=== PATIENT | female | born 1980 | race Caucasian/White ===

== ENCOUNTER 2020-02-06 13:17 | Emergency (ER) | payer MEDICAID, SELFPAY ==
[2020-02-06 13:18] VITALS: BP 177/114; PULSE 95; RESP 20; TEMP 36.1; O2SAT 99; BMI 35.2
--- NOTE | 2020-02-06 13:23 | NURSING ---
NO OLD EKGS
--- NOTE | 2020-02-06 13:30 | EKG12_ITS ---
Test Reason : CP Blood Pressure : / mmHG Vent. Rate : 079 BPM Atrial Rate : 079 BPM P-R Int : 168 ms QRS Dur : 090 ms QT Int : 388 ms P-R-T Axes : 060 043 032 degrees QTc Int : 444 ms Normal sinus rhythm Normal ECG Confirmed by BENOIT GAR, LATESHA ([id number]), avid editor MAKENZIE KAUR ([id number]) on 02/09/2020 11:06:29 AM Referred By: [place] Confirmed By:LATESHA LABOY MD
--- NOTE | 2020-02-06 13:30 | CT_ITS ---
STUDY: CTA CHEST REASON FOR EXAM: Female, 39 years old. CHEST PAIN,COUGH,SHORTNESS OF BREATH RADIATION DOSAGE (If Supplied By Facility): CTDIvol = ( 13.15 ) mGy, DLP = ( 518.97 ) mGycm TECHNIQUE: The examination was performed with the intravenous administration of IV 100mL Isovue-370. Post-processing of the angiographic images was performed, with multiplanar reformation and 3D reconstruction. Individualized dose optimization techniques were used for this CT. COMPARISON: None FINDINGS: Pulmonary artery and its branches demonstrate no evidence for filling defects to suggest acute pulmonary embolism. Normal caliber of the thoracic aorta. No evidence for dissection. No pericardial effusion or hemorrhage. Hepatic steatosis. Upper abdominal structures demonstrate no acute abnormalities No evidence for mediastinal lymphadenopathy. The trachea and the mainstem bronchi are patent Degenerative changes of the thoracic spine. No evidence for acute fractures. Scattered Schmorl''s nodes in the thoracic spine. IMPRESSION: No evidence for acute pulmonary embolism. No evidence for aortic dissection. No consolidative process, pleural effusion or pneumothorax. Electronically Signed: Leon Henderson, at 14:44 EST Tel , Service support , CT/CTA Chest W/WO Contrast
--- NOTE | 2020-02-06 13:31 | ED.DCSUM_ITS ---
History of Present Illness Chief Complaint: Chest Pain Informant: Patient Narrative: 39-year-old female states that for the past week and a half she has had a heaviness in her chest. She states is becoming severe. Today she noted pain in the right lower thoracic posterior rib area. She notes a cough that is nonproductive. No fevers. States she had a chest x-ray and negative Covid test on the . She went back to urgent care today was referred to emergency. She is a smoker. Cough has been nonproductive. She denies any leg swelling. No known trauma. Past Medical History - Allergies and Home Meds Allergies/Adverse Reactions: Allergies No Known Allergies Allergy (Verified 02/06/20 13:20) Primary Care Physician: Mikhail Portillo MD [Primary Care Provider] - Past Medical History: None Surgical History: noncontributory Smoking Status: Current every day smoker Drugs: Heroin Review of Systems General: Denies: Chills, Fever, Sweats Eyes: Denies: Visual changes - bilaterally, Diplopia ENT: Denies: Rhinorrhea, Sore throat Cardiovascular: Reports: Chest pain. Denies: Palpitations Respiratory: Reports: Dyspnea, Cough. Denies: Dyspnea on exertion Gastrointestinal: Denies: Abdominal pain, Nausea, Vomiting, Diarrhea, Melena, Hematochezia Genitourinary: Denies: Dysuria, Hematuria, Frequency Musculoskeletal: Denies: Back pain, Extremity Pain Skin: Denies: Rash, Wounds Neurological: Denies: Headache, Weakness, Numbness Physical Exam Vital Signs/Narrative: Vital Signs Temp Pulse Resp BP Pulse Ox 02/06/20 13:18 96.9 F L 95 20 H 177/114 H 99 Inital Vital Signs reviewed: Yes General: Well nourished, Well developed, No Acute Distress Head: Normocephalic, Atraumatic Eyes: Perrl, EOMI ENT: Moist mucous membranes, No rhinorrhea Neck: Supple, Nontender Cardiovascular: Regular rate, Regular rhythm, No murmurs Respiratory: No distress, CTA bilaterally, Chest nontender Abdomen: Soft, Nontender, Nondistended, Normal bowel sounds Back: Nontender, Normal Inspection Extremities: Nontender, No edema Skin: Normal color, No rash Neurological: Alert, Oriented x3, Cranial nerves II-XII grossly intact, Normal Strength, Normal Sensation Psychological: Normal affect, Normal Mood Diagnostic/Tx/Re-eval Laboratory Last Values WBC 9.9 K/mm3 (4.4-11.0) 02/06/20 13:35 RBC 5.04 M/mm3 (4.2-5.4) 02/06/20 13:35 Hgb 15.0 g/dL (12.0-15.0) 02/06/20 13:35 Hct 44.4 % (37-47) 02/06/20 13:35 MCV 88.1 fL (81-99) 02/06/20 13:35 MCH 29.8 pg (27.0-32.0) 02/06/20 13:35 MCHC 33.8 g/dL (32-36) 02/06/20 13:35 RDW Std Deviation 43.2 fl (35.1-43.9) 02/06/20 13:35 RDW Coeff of Elfego 13.5 % (11.6-14.6) 02/06/20 13:35 Plt Count 313 K/mm3 (150-450) 02/06/20 13:35 MPV 9.8 fl (6.2-12.0) 02/06/20 13:35 Immature Gran % (Auto) 0.300 % (0.0-0.9) 02/06/20 13:35 Neut % (Auto) 62.5 % (47-70) 02/06/20 13:35 Lymph % (Auto) 28.7 % (19-41) 02/06/20 13:35 [place] % (Auto) 7.0 % (0-10) 02/06/20 13:35 Eos % (Auto) 1.0 % (0-5) 02/06/20 13:35 Baso % (Auto) 0.5 % (0-1) 02/06/20 13:35 Absolute Neuts (auto) 6.2 X10^3/uL (2.0-7.7) 02/06/20 13:35 Absolute Lymphs (auto) 2.83 X10^3/uL (0.83-4.51) 02/06/20 13:35 Nucleated RBC % 0 % (0-5) 02/06/20 13:35 Sodium 139 mmol/L (136-145) 02/06/20 13:35 Potassium 3.5 mmol/L (3.5-5.1) 02/06/20 13:35 Chloride 108 mmol/L (98-107) H 02/06/20 13:35 Carbon Dioxide 28.0 mmol/L (21.0-32.0) 02/06/20 13:35 Anion Gap 3 (5-15) L 02/06/20 13:35 BUN 7 mg/dL (7-18) 02/06/20 13:35 Creatinine 0.88 mg/dL (0.55-1.02) 02/06/20 13:35 Estim Creat Clear Calc 72.65 ml/min 02/06/20 13:35 Est GFR (MDRD) Af Amer 90 mL/min (>60) 02/06/20 13:35 Est GFR (MDRD) Non-Af 75 mL/min (>60) 02/06/20 13:35 BUN/Creatinine Ratio 7.9 RATIO (10-20) L 02/06/20 13:35 Glucose 87 mg/dL (74-106) 02/06/20 13:35 Calcium 8.9 mg/dL (8.5-10.1) 02/06/20 13:35 Total Bilirubin 0.50 mg/dL (0.20-1.00) 02/06/20 13:35 AST 16 U/L (15-37) 02/06/20 13:35 ALT 33 U/L (13-56) 02/06/20 13:35 Alkaline Phosphatase 100 U/L (45-117) 02/06/20 13:35 Troponin I < 0.015 ng/mL (<0.045) 02/06/20 13:35 Total Protein 8.4 g/dL (6.4-8.2) H 02/06/20 13:35 Albumin 4.1 g/dL (3.2-5.0) 02/06/20 13:35 Globulin 4.3 g/dL (2.2-4.2) H 02/06/20 13:35 Albumin/Globulin Ratio 1.0 RATIO (0.9-2.4) 02/06/20 13:35 - EKG Initial EKG Interpretation: Sinus Rhythm - EKG demonstrates a normal sinus rhythm at a rate of 79. There are no concerning features of ACS or ectopy. - Medical Decision Making CTA of the chest is negative for PE dissection effusion or infiltrates. Basic blood work is negative. Her EKG is a normal sinus rhythm. This point I think is safe to discharge the patient home. I do not have a clear etiology for pain but I also do not see an emergent reason that she would need to be hospitalized. Would recommend follow-up with her primary care doctor. ED Disposition - Plan for ED Patient: Disposition: Home or Assisted Living Diagnosis: Chest pain Instructions: ED Chest Pain, Uncertain Cause Referrals: Mikhail Portillo MD [Primary Care Provider] - As soon as possible
[2020-02-06 13:44] LABS: Absolute Lymphocyte Count 2.83 X10^3/uL (0.83-4.51); Absolute Neutrophil Count 6.2 X10^3/uL (2.0-7.7); Basophil# 0.05 X10^3/uL; Basophil% 0.5 % (0-1); Hematocrit 44.4 % (37-47); Lymphocyte # 2.83 X10^3/ul (4.0); Lymphocyte % 28.7 % (19-41); Mean Corp Hgb Conc 33.8 g/dL (32-36); Mean Corpuscular Hgb 29.8 pg (27.0-32.0); Mean Corpuscular Volume 88.1 fL (81-99); Mean Platelet Vol. 9.8 fl (6.2-12.0); Monocyte# 0.69 X10^3/uL; NRBC Flagged by Analyzer 0 % (0-5); Neutrophil # 6.17 X10^3/uL (2.7-7.7); Neutrophil % 62.5 % (47-70); Platelet Count 313 K/mm3 (150-450); RBC Distribution Width CV 13.5 % (11.6-14.6); RBC Distribution Width SD 43.2 fl (35.1-43.9); Red Blood Count 5.04 M/mm3 (4.2-5.4); White Blood Count 9.9 K/mm3 (4.4-11.0)
[2020-02-06 14:02] LABS: AST(SGOT) 16 U/L (15-37); Alanine Aminotransfer ALT/SGPT 33 U/L (13-56); Albumin, Serum 4.1 g/dL (3.2-5.0); Alkaline Phosphatase 100 U/L (45-117); Anion Gap 3 (5-15); BUN 7 mg/dL (7-18); BUN/Creat Ratio 7.9 RATIO (10-20); Calcium,Total 8.9 mg/dL (8.5-10.1); Chloride 108 mmol/L (98-107); Creatinine, Serum 0.88 mg/dL (0.55-1.02); EST Glomerular Filtration Rate 75 mL/min (>60); Est Glom Filt Rate - Afr Amer 90 mL/min (>60); Estimated Creatinine Clearance 72.65 ml/min; Globulin 4.3 g/dL (2.2-4.2); Glucose 87 mg/dL (74-106); Potassium 3.5 mmol/L (3.5-5.1); Protein, Total 8.4 g/dL (6.4-8.2); Sodium Level 139 mmol/L (136-145)
== END 2020-02-06 15:08 | disposition home or self-care (01) ==
PROVIDERS: Emergency Provider Emergency Medicine; PCP Family Medicine
DX: R07.9 Chest pain, unspecified (principal); R05 Cough; F17.200 Nicotine dependence, unspecified, uncomplicated
CPT/HCPCS: 71275; 80053; 84484; 85025; 93005; 99284; Q9967; A4216

== ENCOUNTER → 2021-01-02 | Outpatient (CLI) | payer MEDICAID, SELFPAY | END | disposition home or self-care (01) | PROVIDERS: Referring Provider Otolaryngology; Visit Provider Otolaryngology | DX: Z11.52 Encounter for screening for COVID-19 (principal) | CPT/HCPCS: 87635; U0005; U0003 ==

== ENCOUNTER 2021-02-22 10:15 | Outpatient (CLI) | payer MEDICAID, SELFPAY ==
[2021-02-25 16:07] LABS: Alternaria tenuis <0.10 kU/L (Class 0); Ash, White <0.10 kU/L (Class 0); Aspergillus fumigatus <0.10 kU/L (Class 0); Bermuda Grass <0.10 kU/L (Class 0); Birch <0.10 kU/L (Class 0); Black Walnut <0.10 kU/L (Class 0); Cat Hair / Dander,Stand <0.10 kU/L (Class 0); Cedar, Mountain <0.10 kU/L (Class 0); Cladosporium herbarum <0.10 kU/L (Class 0); Cockroach, American <0.10 kU/L (Class 0); Cottonwood <0.10 kU/L (Class 0); D farinae Mite <0.10 kU/L (Class 0); D pteronyssinus <0.10 kU/L (Class 0); Dog Epithelia <0.10 kU/L (Class 0); Elm, American White <0.10 kU/L (Class 0); Immunoglobulin E < 2 IU/mL (6-495); Maple/Box Elder <0.10 kU/L (Class 0); Mulberry, White <0.10 kU/L (Class 0); Oak, White <0.10 kU/L (Class 0); Pecan <0.10 kU/L (Class 0); Penicillium Notatum <0.10 kU/L (Class 0); Pigweed, Rough <0.10 kU/L (Class 0); Ragweed, Short/Common <0.10 kU/L (Class 0); Russian Thistle <0.10 kU/L (Class 0); Sheep Sorrel <0.10 kU/L (Class 0); Sycamore, American <0.10 kU/L (Class 0); Timothy Grass <0.10 kU/L (Class 0)
[2021-02-26 10:40] LABS: Mouse Urine <0.10 kU/L (Class 0)
== END 2021-02-22 23:59 | disposition short-term general hospital (02) ==
LOC: LAB 10:18
PROVIDERS: PCP Family Medicine; Referring Provider Otolaryngology; Visit Provider Otolaryngology
DX: T78.40XA Allergy, unspecified, initial encounter (principal)
CPT/HCPCS: 36415; 82785; 86003

== ENCOUNTER 2021-03-01 10:36 | Outpatient (CLI) | payer MEDICAID, SELFPAY | END 2021-03-01 23:59 | disposition short-term general hospital (02) | LOC: LABSPEC 10:37 | PROVIDERS: PCP Family Medicine; Visit Provider Otolaryngology | DX: J32.9 Chronic sinusitis, unspecified (principal) | CPT/HCPCS: 87635; U0003; U0005 ==

== ENCOUNTER → 2024-03-18 | Outpatient (CLI) | payer OTHER, SELFPAY ==
--- NOTE | 2024-03-18 12:48 | EGD_PTH ---
PATIENT: LAINE HERRERA LOC: [facility] U#:[id number] AGE/SX: 43/F ROOM: RE03/18/[address]: Dr. Marquis Elder MD : 1980 BED: DIS: 03/18/2024 SPEC #: [id number] RECD: 03/19/24 08:35 STATUS: SALAS CHETAN #: [id number] MIREYA: 03/18/24 12:[address]: Marquis Elder DEPT: SURGICAL PATHOLOGY RECD BY: Michael Ackerman ENTERED: 03/19/24 08:37 SP TYPE: EGD BIOPSY OTHR DR: Dr. Mikhail Portillo MD Tissues: A - Duodenum, NOS B - Gastric mucous membrane C - Esophagus, NOS D - Esophageal mucous membrane COLON BIOPSY Procedures: Special Stain Group I Surgery Specimen Level IV GMS Stain (control) Alcian Blue/PAS (control) HEADER OPERATION: EGD and colonoscopy PRE-OP DIAGNOSIS: Reflux, diarrhea, change in bowel habits TISSUE SUBMITTED: A- Duodenum biopsy, B- Antral biopsy, C- Distal esophagus biopsy, D- Mid esophageal biopsy, E- Random colon biopsy MICROSCOPIC DIAGNOSIS A. Duodenum, biopsy: Duodenal mucosa without neutrophils, organisms, or dysplasia. B. Antral biopsy: Antral to oxyntic mucosa with no erosions, gastritis, polyps, or dysplasia. C. Distal esophagus, biopsy: Squamous mucosa with intraepithelial neutrophils and no erosions, debris or goblet cells. A small fragment of columnar epithelium. An Alcian Blue PAS stain with appropriate controls is negative for goblet cells (See Comment). A GMS stain with appropriate controls is negative for fungi. D. Mid esophagus, biopsy: Squamous epithelium containing intraepithelial neutrophils and no erosions, columnar mucosa, debris or goblet cells. A GMS stain with appropriate controls is negative for fungi. E. Colon, random biopsy: Focal tubular adenoma. Occasional hyperplastic features, cryptitis present. 03/22/2024 COMMENT C. Alcian blue/PAS stain with matched control is used in the evaluation of the specimen. MICROSCOPIC DESCRIPTION Slides are reviewed. GROSS DESCRIPTION A. Received in fixative is one container labeled with the patient's name and designated Duodenal biopsy. The specimen consists of one irregular fragment of light ramirez soft tissue that measures 0.1 x 0.3 x 0.1 cm. The specimen is totally submitted in one cassette. B. Received in fixative is one container labeled with the patient's name and designated Antral biopsy. The specimen consists of one irregular fragment of light ramirez soft tissue that measures 0.6 x 0.4 x 0.1 cm. The specimen is totally submitted in one cassette. C. Received in fixative is one container labeled with the patient's name and designated Distal esophagus biopsy. The specimen consists of two irregular fragments of light ramirez soft tissue that in aggregate measure 1 x 0.3 x 0.1 cm. The specimen is totally submitted in one cassette. D. Received in fixative is one container labeled with the patient's name and designated Mid esophageal biopsy. The specimen consists of one irregular fragment of light ramirez soft tissue that measures 0.5 x 0.3 x 0.1 cm. The specimen is totally submitted in one cassette. E. Received in fixative is one container labeled with the patient's name and designated Random colon biopsy. The specimen consists of multiple irregular fragments of light ramirez soft tissue that in aggregate measure 1.5 x 1 x 0.2 cm. The specimen is totally submitted in one cassette. 03/19/2024 TC:[id number]
== END | disposition home or self-care (01) ==
PROVIDERS: PCP Family Medicine; Referring Provider Surgery; Visit Provider Surgery
DX: D12.6 Benign neoplasm of colon, unspecified (principal); K21.9 Gastro-esophageal reflux disease without esophagitis; R19.7 Diarrhea, unspecified
CPT/HCPCS: 88305; 88312